=== PATIENT | female | born 1950 | race Caucasian/White ===

== ENCOUNTER → 2018-07-21 | Outpatient (CLI) | payer MEDICARE, OTHER | END | disposition home or self-care (01) | LOC: CFH 10:48 | PROVIDERS: ATTEND Family Medicine | DX: M81.0 Age-related osteoporosis without current pathological fracture (principal); N95.9 Unspecified menopausal and perimenopausal disorder | CPT/HCPCS: 77080 ==

== ENCOUNTER → 2019-08-29 | Outpatient (CLI) | payer MEDICARE, OTHER ==
[~2019-08-29] MED LIST: ALEN70TA6 PO; ASCO100019 PO; BONE SUPPORT PO; GLUC1CAP13 PO; GUAI100L11 PO; LACT1CAP35 PO; LINE600T12 PO; MELA10TA PO; MELA3TAB56 PO; OXYC-302 PO; PRED1TAB19 PO; PRED20TA PO; QUIN10TA15 PO; QUIN5TAB PO; S-AD400T3 PO; TOFA11TA PO; TRAM50TA2 PO; UBID100C24 PO; VITA1TAB85 PO; [UNRECOGNIZED DRUG - MIXTURE] TP; diuretic PO; turmeric PO
[2019-08-29 13:00] LABS: MICROSCOPIC NOT IND
[2019-08-29 13:06] LABS: CULTURE INDICATED? NO
[2019-08-29 13:09] LABS: BASOPHILS # (AUTO) 0.01 x10^3/uL (0-0.1); BASOPHILS % (AUTO) 0 % (0-1); EOSINOPHILS # (AUTO) 0.03 x10^3/uL (0-0.4); EOSINOPHILS % (AUTO) 1 % (1-7); LYMPHOCYTES % (AUTO) 18 % (22-44); MD NO; MEAN CORPUSCULAR HEMOGLOBIN 32.4 pg (27.0-34.8); MEAN CORPUSCULAR HGB CONC 33.3 g/dL (32.4-35.8); MEAN CORPUSCULAR VOLUME 97.3 fL (80-100); MEAN PLATELET VOLUME 8.3 fL (7.4-10.4); MONOCYTES # (AUTO) 0.35 x10^3/uL (0.2-0.8); MONOCYTES % (AUTO) 6 % (2-9); NEUTROPHILS # (AUTO) 4.11 x10^3/uL (1.8-6.8); NEUTROPHILS % (AUTO) 75 % (42-75); PLATELET COUNT 274 x10^3/uL (130-400); RED BLOOD COUNT 4.36 x10^6/uL (3.82-5.3); RED CELL DISTRIBUTION WIDTH 13.7 % (9.6-15.2)
[2019-08-29 13:15] LABS: ALBUMIN 3.8 g/dL (3.4-5.0); ANION GAP 5 mmol/L (5-15); CALCIUM 8.7 mg/dL (8.5-10.1); CHLORIDE 108 mmol/L (98-107)
[2019-08-29 13:18] LABS: ALANINE AMINOTRANSFERASE 27 U/L (12-78); ALKALINE PHOSPHATASE 52 U/L (45-117); BILIRUBIN,TOTAL 0.3 mg/dL (0.2-1.0); CREATININE 0.84 mg/dL (0.55-1.02); TOTAL PROTEIN 7.9 g/dL (6.4-8.2)
== END | disposition home or self-care (01) ==
LOC: STAR 11:37
PROVIDERS: ATTEND Obstetrics & Gynecology Gynecology
DX: Z01.818 Encounter for other preprocedural examination (principal); N81.4 Uterovaginal prolapse, unspecified; N39.3 Stress incontinence (female) (male); J98.4 Other disorders of lung; J98.11 Atelectasis; M41.54 Other secondary scoliosis, thoracic region
CPT/HCPCS: 36415; 71046; 80053; 81003; 85025; 93005

== ENCOUNTER 2019-09-07 05:18 | Observation (INO) | payer MEDICARE, OTHER ==
[~2019-09-07] VITALS: Ht 160 cm; Wt 64.3 kg
[2019-09-07 06:21] VITALS: BP 136/83
[2019-09-07] MEDS ORDERED: LACTATED RINGERS 1,000 ML IV SCH (06:24)
[2019-09-07] MEDS ORDERED: FUROSEMIDE 20 MG/2 ML ONE (06:44)
[2019-09-07] MEDS ORDERED: NEOMY/POLYMYXIN B GU IRR. 1 ML ONE (06:44)
[2019-09-07] MEDS ORDERED: LIDOCAINE 1%-EPI 1:100K, 20ML ONE ×2 (06:44→09:33)
[2019-09-07] MEDS ORDERED: INDIGO CARMINE 0.8%, 5ML ONE (06:44)
[2019-09-07] MEDS ORDERED: APREPITANT 40 MG CAPSULE ONE (07:12)
[2019-09-07] MEDS ORDERED: FENTANYL PF 250 MCG/5ML ONE (07:12)
[2019-09-07] MEDS ORDERED: MIDAZOLAM 1 MG/ML, 2ML ONE (07:12)
[2019-09-07] MEDS ORDERED: GABAPENTIN 300 MG CAPSULE ONE (07:13)
[2019-09-07] MEDS ORDERED: ACETAMINOPHEN 500 MG TABLET ONE (07:13)
[2019-09-07] MEDS ORDERED: PROPOFOL 50 ML ONE (07:48)
[2019-09-07] MEDS ORDERED: PHENYLEPHRINE 10 MG/ML ONE (08:29)
[2019-09-07] MEDS ORDERED: DEXAMETHASONE 4 MG/ML, 1ML ONE (08:29)
[2019-09-07] MEDS ORDERED: PROPOFOL 10 MG/ML, 20ML ONE (08:29)
[2019-09-07] MEDS ORDERED: ONDANSETRON 2MG/ML, 2ML ONE (08:29)
[2019-09-07] MEDS ORDERED: CEFOTETAN PMX 2GM/50ML 50 ML ONE (08:29)
[2019-09-07] MEDS ORDERED: LIDOCAINE 1%-EPI 1:100K, 20ML INFIL ONE (09:34)
[2019-09-07] MEDS ORDERED: FENTANYL PF 100 MCG/2ML ONE (10:01)
[2019-09-07] MEDS: FENTANYL PF 100 MCG/2ML IV PRN ×2 (10:05→10:15)
[2019-09-07] MEDS ORDERED: OXYcodone 5 MG/5 ML ORAL.SOL UDC ONE (10:27)
[2019-09-07] MEDS ORDERED: MEPERIDINE/PF 25MG/ML,1ML IVPush PRN (10:30)
[2019-09-07] MEDS ORDERED: HYDROmorphone 2 MG/ML, 1ML IVPush PRN (10:30)
[2019-09-07] MEDS ORDERED: hydrALAzine 20 MG/ML, 1ML IV PRN (10:30)
[2019-09-07] MEDS ORDERED: ALBUTEROL SULFATE 2.5 MG/3 ML NPPB PRN (10:30)
[2019-09-07] MEDS ORDERED: METHOCARBAMOL 1,000 MG in DEXTROSE 5% 100 ML IV PRN (10:30)
[2019-09-07] MEDS ORDERED: OXYcodone 5 MG/5 ML ORAL.SOL UDC PO PRN (10:30)
[2019-09-07] MEDS ORDERED: ACETAMINOPHEN 325 MG TABLET PO PRN (10:30)
[2019-09-07] MEDS ORDERED: HALOPERIDOL 5 MG/ML IV PRN (10:30)
[2019-09-07] MEDS ORDERED: MEPERIDINE/PF 25MG/ML,1ML ONE (11:07)
[2019-09-07 19:35] VITALS: BP 114/80
[2019-09-07] MEDS ORDERED: ONDANSETRON 2MG/ML, 2ML IVPush PRN (20:00)
[2019-09-07] MEDS: OXYcodone IR 5MG TABLET PO PRN (22:23)
[2019-09-08 00:28] VITALS: BP 116/63
[2019-09-08] MEDS: OXYcodone IR 5MG TABLET PO PRN ×4 (01:23→10:50)
[2019-09-08 07:23] VITALS: BP 121/76
[2019-09-08 10:51] VITALS: BP 114/71
== END 2019-09-08 12:02 | disposition home or self-care (01) ==
LOC: OR 05:18 → 4NE 19:01 → OR 20:09 → DCLOUNGE 09-08 11:42
PROVIDERS: ADMIT Obstetrics & Gynecology Gynecology; ATTEND Obstetrics & Gynecology Gynecology
DX: N81.4 Uterovaginal prolapse, unspecified (principal); N39.3 Stress incontinence (female) (male); M06.9 Rheumatoid arthritis, unspecified; I10 Essential (primary) hypertension; K46.9 Unspecified abdominal hernia without obstruction or gangrene; M41.9 Scoliosis, unspecified
CPT/HCPCS: 36415; 57265; 57288; 57425; 58550; 85014; 88307; 88341; 88342; 88360; C1771; G0378; J1100; J1940; J2175; J2370; J2405; J2704; J2800; J3010; J3490; J7120